=== PATIENT | male | born 1995 | race Caucasian/White ===

== ENCOUNTER 2019-03-17 04:11 | Emergency (ER) | payer OTHER ==
[~2019-03-17] VITALS: Ht 182.9 cm; Wt 59.0 kg
[2019-03-17] MEDS ORDERED: SPIRONOLACTONE50 MG ORAL (04:30)
[2019-03-17] MEDS ORDERED: ESTRADIOL2 M1 PO (04:30)
--- NOTE | 2019-03-17 04:38 | NUR ---
ED Nurse Note: Walk-in patient presents with complaints of abdominal pain, gas and vomiting.
[2019-03-17 04:39] VITALS: BP 115/75
[2019-03-17] MEDS ORDERED: Morphine Sulfate 2mg/ml Inj(IV/IM USE ONLY) IVP ONE (05:00)
[2019-03-17] MEDS ORDERED: Morphine Sulfate 2mg/ml Inj(IV/IM USE ONLY) ONE (05:20)
--- NOTE | 2019-03-17 05:38 | NUR ---
ED Nurse Note: Patient tolerated medication well, is resting comfortably with his mom at bedside. N/S Fluids running.
[2019-03-17 06:12] LABS: HEMATOCRIT 40.5 % (42.0-52.0); HEMOGLOBIN 13.9 G/DL (14.2-18.0); MEAN CORPUSCULAR VOLUME 96 FL (80-99); PLATELET COUNT 205 K/UL (150-450); RED BLOOD COUNT 4.21 M/UL (4.70-6.10); RED CELL DISTRIBUTION WIDTH 10.8 % (11.6-14.8); WHITE BLOOD COUNT 12.2 K/UL (4.8-10.8)
[2019-03-17 06:18] LABS: ANION GAP 9 mmol/L (5-15); BLOOD UREA NITROGEN 16 mg/dL (7-18); CALCIUM 9.2 MG/DL (8.5-10.1); CARBON DIOXIDE 25 MMOL/L (21-32); CHLORIDE 103 MMOL/L (98-107); CREATININE 0.7 MG/DL (0.55-1.30); POTASSIUM 3.5 MMOL/L (3.5-5.1); SODIUM 137 MMOL/L (136-145)
[2019-03-17 06:29] LABS: ALANINE AMINOTRANSFERASE 23 U/L (12-78); ALBUMIN 4.4 G/DL (3.4-5.0); ALBUMIN/GLOBULIN RATIO 1.8 (1.0-2.7); ALKALINE PHOSPHATASE 52 U/L (46-116); ASPARTATE AMINO TRANSFERASE 17 U/L (15-37); BILIRUBIN,TOTAL 1.1 MG/DL (0.2-1.0); CREATINE KINASE 55 U/L (26-308)
--- NOTE | 2019-03-17 06:38 | NUR ---
ED Nurse Note: Patient awake, alert and no complaints of N/V. will continue to monitor.
[2019-03-17 06:49] LABS: BILIRUBIN,DIRECT 0.2 MG/DL (0.0-0.3)
[2019-03-17 06:59] VITALS: BP 118/74
--- NOTE | 2019-03-17 07:03 | NUR ---
ED Nurse Note: Patient resting with mom at bedside, vital signs stable.
--- NOTE | 2019-03-17 07:19 | NUR ---
HAND-OFF: Report given to Rebecca ZHANG.
--- NOTE | 2019-03-17 07:20 | NUR ---
ED Nurse Note: Received patient from [facility], patient is stable in bed, ready to be discharged.
--- NOTE | 2019-03-17 07:20 | Emergency Room Report ---
History of Present Illness General Chief Complaint: Abdominal Pain Source: Patient Present Illness HPI The patient presents with nausea vomiting and diarrhea. He's had diarrhea for 2 days. The last times he vomited it has been bile. He is unable to keep down liquids at this time. He has crampy abdominal pain is 6/10. Diffuse. Denies dysuria. The patient denies any travel or unusual contacts or foods. 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 Denies medical problems. No fevers, chills, chest pain, palpitations, shortness of breath, depression, visual changes, headache. 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 Nursing Documentation: PMH: Agreed; PSxH: Agreed Nursing Documentation-PMH Past Medical History: No Stated History Review of Systems All Other Systems: negative except mentioned in HPI Physical Exam Vital Signs Date Time Temp Pulse Resp B/P (MAP) Pulse Ox O2 Delivery O2 Flow Rate FiO2 03/17/19 04:20 98.2 112 16 115/75 (88) 98 03/17/19 06:59 Room Air Sp02 EP Interpretation: reviewed, normal General Appearance: well appearing, no apparent distress, GCS 15 Head: normocephalic Eyes: bilateral eye normal inspection, bilateral eye PERRL, bilateral eye EOMI ENT: moist mucus membranes Neck: supple Respiratory: lungs clear, normal breath sounds Cardiovascular #1: regular rate, rhythm Cardiovascular #2: 2+ radial (R) Gastrointestinal: normal inspection, normal bowel sounds, no mass, non- distended, no guarding, no rebound, tenderness - Reported, scaphoid Genitourinary: no CVA tenderness Musculoskeletal: back normal, gait/station normal, normal range of motion Neurologic: alert, oriented x3, grossly normal Psychiatric: mood/affect normal Skin: no rash Medical Decision Making Diagnostic Impression: Primary Impression: Viral gastroenteritis ER Course Patient presents with nausea vomiting diarrhea with abdominal crampiness. Differential includes food poisoning, gastroenteritis, dysentery, diverticulitis , appendicitis amongst others. Based on his abdominal exam this is not a surgical problem. Labs are indicated as well as IV hydration, Zofran and a small dose of morphine. Labs with minimal leukocytosis. Patient markedly improved. Abdomen is still soft. Tolerating oral intake. Discussed treatment plan with patient. Patient stable for outpatient observation and treatment. Laboratory Tests Test 03/17/19 04:50 White Blood Count 12.2 K/UL (4.8-10.8) H Red Blood Count 4.21 M/UL (4.70-6.10) L Hemoglobin 13.9 G/DL (14.2-18.0) L Hematocrit 40.5 % (42.0-52.0) L Mean Corpuscular Volume 96 FL (80-99) Mean Corpuscular Hemoglobin 33.1 PG (27.0-31.0) H Mean Corpuscular Hemoglobin Concent 34.4 G/DL (32.0-36.0) Red Cell Distribution Width 10.8 % (11.6-14.8) L Platelet Count 205 K/UL (150-450) Mean Platelet Volume 6.9 FL (6.5-10.1) Neutrophils (%) (Auto) % (45.0-75.0) Lymphocytes (%) (Auto) % (20.0-45.0) Monocytes (%) (Auto) % (1.0-10.0) Eosinophils (%) (Auto) % (0.0-3.0) Basophils (%) (Auto) % (0.0-2.0) Neutrophils % (Manual) Pending Lymphocytes % (Manual) Pending Platelet Estimate Pending Platelet Morphology Pending Prothrombin Time 10.3 SEC (9.30-11.50) Prothrombin Time INR 1.0 (0.9-1.1) PTT 27 SEC (23-33) Sodium Level 137 MMOL/L (136-145) Potassium Level 3.5 MMOL/L (3.5-5.1) Chloride Level 103 MMOL/L (98-107) Carbon Dioxide Level 25 MMOL/L (21-32) Anion Gap 9 mmol/L (5-15) Blood Urea Nitrogen 16 mg/dL (7-18) Creatinine 0.7 MG/DL (0.55-1.30) Estimate Glomerular Filtration Rate > 60 mL/min (>60) Glucose Level 126 MG/DL (74-106) H Calcium Level 9.2 MG/DL (8.5-10.1) Total Bilirubin 1.1 MG/DL (0.2-1.0) H Direct Bilirubin 0.2 MG/DL (0.0-0.3) Aspartate Amino Transferase (AST) 17 U/L (15-37) Alanine Aminotransferase (ALT) 23 U/L (12-78) Alkaline Phosphatase 52 U/L (46-116) Total Creatine Kinase 55 U/L (26-308) Total Protein 6.8 G/DL (6.4-8.2) Albumin 4.4 G/DL (3.4-5.0) Globulin 2.4 g/dL Albumin/Globulin Ratio 1.8 (1.0-2.7) Lipase 73 U/L (73-393) Last Vital Signs Date Time Temp Pulse Resp B/P (MAP) Pulse Ox O2 Delivery O2 Flow Rate FiO2 03/17/19 07:33 98.1 95 20 109/72 100 Room Air Status: improved Disposition: HOME, SELF-CARE Condition: Improved Scripts Ondansetron Odt* (ZOFRAN ODT*) 4 Mg Tab.rapdis 4 MG BC EVERY 8 HOURS, #6 TAB 0 Refills Prov: Sebastian Curtis MD 03/17/19 Tramadol Hcl* (ULTRAM*) 50 Mg Tablet 50 MG ORAL Q6H PRN for For Pain, #6 TAB 0 Refills Prov: Sebastian Curtis MD 03/17/19 Referrals: NON PHYSICIAN (PCP) Sebastian Curtis MD Mar 17, 2019 07:20
[2019-03-17] MEDS ORDERED: TRAMADOL HCL50 MG ORAL (07:23)
[2019-03-17] MEDS ORDERED: ONDANSETRON ODT4 MG BC (07:23)
[2019-03-17 07:32] VITALS: BP 109/72
[2019-03-17 07:33] VITALS: BP 109/72
--- NOTE | 2019-03-17 07:34 | NUR ---
ER DISCHARGE NOTE: Patient is cleared to be discharged per ERMD DR HAGEN, pt is aox4, on room air, with stable vital signs. pt was given dc and prescription instructions, pt was able to verbalize understanding, pt id band and iv site removed without complications. pt is able to ambulate with steady gait. pt took all belongings.
== END 2019-03-17 07:33 | disposition home or self-care (01) ==
LOC: EMR 04:52
DX: K52.9 Noninfective gastroenteritis and colitis, unspecified (principal); D72.829 Elevated white blood cell count, unspecified
CPT/HCPCS: 36415; 80053; 82248; 82550; 83690; 85007; 85025; 85610; 85730; 96361; 96374; 96375; 99284; J2270; J2405; S0028